=== PATIENT | female | born 1950 | race Caucasian/White ===

== ENCOUNTER 2017-06-05 05:55 | Emergency (ER) | payer BC ==
[2017-06-05 06:31] LABS: #Basophils 0.1 thou/uL (0.0-0.2); #Lymphocytes 0.6 thou/uL (1.20-3.40); #Monocytes 1.2 thou/uL (0.11-0.59); #Neutrophils 15.6 thou/uL (1.40-6.50); %Basophils 0.6 % (0.0-1.0); %Eosinophils 0.1 % (0.0-10.0); %Lymphocytes 3.3 % (21.0-51.0); %Monocytes 6.6 % (0.0-10.0); %Neutrophils 89.4 % (42.0-75.0); Hemoglobin 12.4 g/dL (12.0-16.0); Mean Corpuscular Hemoglobin 31.3 pg (27.0-31.0); Mean Corpuscular Volume 94.8 fl (81.0-99.0); Mean Platelet Volume 9.2 fL (7.4-10.4); Platelet Count 126 thou/uL (130-400); RBC Distribution Width 12.7 % (11.5-14.5); Red Blood Cell (RBC) Count 3.95 mill/uL (4.20-5.40); White Blood Cell (WBC) Count 17.4 thou/uL (4.8-10.8)
[2017-06-05 06:35] LABS: PTT 27.4 SEC (22.9-36.1)
[2017-06-05 06:44] LABS: ALT (SGPT) 17 U/L (8-55); AST (SGOT) 27 U/L (5-34); Albumin 4.1 g/dL (3.4-4.8); Alkaline Phosphatase 63 U/L (40-150); Anion Gap 16 mmol/L (10-20); BUN (Urea Nitrogen) 20 mg/dL (9.8-20.1); Bilirubin, Total 0.5 mg/dL (0.2-1.2); Calc. Creatinine Clearance 0 mL/min (70-130); Calcium 9.5 mg/dL (7.8-10.44); Carbon Dioxide 26 mmol/L (23-31); Chloride 98 mmol/L (98-107); Estimated GFR-MDRD 33; Globulin 3.3 g/dL (2.4-3.5); Glucose 99 mg/dL (80-115); Potassium 4.3 mmol/L (3.5-5.1); Protein, Total 7.4 g/dL (6.0-8.3); Sodium 136 mmol/L (136-145)
[2017-06-05 07:02] LABS: Bilirubin Negative (Negative); Blood, Urine Trace (Negative); Clarity Cloudy (Clear); Glucose, Urine (Dipstick) Negative (Negative); Leukocyte Large (Negative); Nitrite Negative (Negative); Protein, Urine (Dipstick) Negative (Neg-Trace); Specific Gravity, Urine 1.015 (1.005-1.030); Urobilinogen 0.2 mg/dL (0.2-1.0); pH, Urine 5.5 (5.0-9.0)
--- NOTE | 2017-06-05 07:05 | RAD ---
PORTABLE CHEST: Date: 06/05/17 Comparison is made with a 05/10/13 study done at [facility]. This portable film at 0616 hours shows a prominent left hilum compared to before. There is a general ly confluent area that measures about 4.7 x 2.4 cm here. I suspect that there is more here than just pulmonary artery and would suspect underlying adenopathy or mass. Elective CT to investigate this f urther, particularly in view of the patient's clinical history, would be in order. The lungs are oth erwise clear. There are no effusions. Heart size is normal. Calcification is seen in the aortic arch as usual. A right central venous catheter is in place with its tip in the vicinity of the distal horowitz perior vena cava. IMPRESSION: Left hilar prominence suspicious for underlying pathology. CT needed for further investigation. POS: HOME
[2017-06-05 07:11] LABS: Bacteria/HPF 2+ HPF (None Seen); RBC/HPF 0-3 HPF (0-3); Squamous Epithelial 0-3 HPF (0-3)
== END 2017-06-05 07:50 | disposition home or self-care (01) ==
LOC: BURERS 05:55
DX: N39.0 Urinary tract infection, site not specified (principal); I25.10 Atherosclerotic heart disease of native coronary artery without angina pectoris; I25.2 Old myocardial infarction; I10 Essential (primary) hypertension; J44.9 Chronic obstructive pulmonary disease, unspecified; Z79.82 Long term (current) use of aspirin; Z79.899 Other long term (current) drug therapy; Z79.891 Long term (current) use of opiate analgesic
CPT/HCPCS: 36415; 71010; 80053; 81003; 81015; 82553; 83880; 84484; 85025; 85610; 85730; 93005

== ENCOUNTER 2017-08-20 10:30 | Emergency (ER) | payer BC ==
[2017-08-20 10:57] LABS: Bilirubin Negative (Negative); Blood, Urine Negative (Negative); Clarity Slightly Cloudy (Clear); Glucose, Urine (Dipstick) Negative (Negative); Leukocyte Small (Negative); Nitrite Negative (Negative); Protein, Urine (Dipstick) Trace mg/dL (Neg-Trace); Specific Gravity, Urine 1.015 (1.005-1.030); Urobilinogen 0.2 mg/dL (0.2-1.0); pH, Urine 5.5 (5.0-9.0)
[2017-08-20 11:04] LABS: Bacteria/HPF Rare-Few HPF (None Seen); RBC/HPF None Seen HPF (0-3); Squamous Epithelial 0-3 HPF (0-3); Yeast-All Forms 1+ HPF (None Seen)
[2017-08-20] MEDS ORDERED: cefTRIAXone\\ROCEPHIN 1 GM VIAL ONE (11:49)
[2017-08-20 11:54] LABS: ALT (SGPT) 17 U/L (8-55); AST (SGOT) 19 U/L (5-34); Albumin 3.8 g/dL (3.4-4.8); Alkaline Phosphatase 82 U/L (40-150); Anion Gap 16 mmol/L (10-20); BUN (Urea Nitrogen) 24 mg/dL (9.8-20.1); Bilirubin, Total 0.3 mg/dL (0.2-1.2); Calc. Creatinine Clearance 0 mL/min (70-130); Calcium 9.4 mg/dL (7.8-10.44); Carbon Dioxide 26 mmol/L (23-31); Chloride 101 mmol/L (98-107); Estimated GFR-MDRD 33; Glucose 98 mg/dL (80-115); Potassium 5.2 mmol/L (3.5-5.1); Protein, Total 7.8 g/dL (6.0-8.3); Sodium 138 mmol/L (136-145)
[2017-08-20 11:56] LABS: CKMB 1.6 ng/mL (0-6.6); Troponin I Less than 0.010 ng/mL (< 0.028)
[2017-08-20 12:20] LABS: #Eosinphils 0.4 thou/uL (0.0-0.7); #Lymphocytes 1.6 thou/uL (1.20-3.40); #Monocytes 0.7 thou/uL (0.11-0.59); #Neutrophils 7.4 thou/uL (1.40-6.50); %Basophils 0.5 % (0.0-1.0); %Eosinophils 4.1 % (0.0-10.0); %Lymphocytes 15.8 % (21.0-51.0); %Monocytes 6.8 % (0.0-10.0); %Neutrophils 72.9 % (42.0-75.0); Eosinophils 3 % (0-10); Hemoglobin 9.5 g/dL (12.0-16.0); Lymphocytes 19 % (21-51); MDiff Complete? YES; Mean Corpuscular HGB CONC 31.3 g/dL (32.0-36.0); Mean Corpuscular Hemoglobin 27.6 pg (27.0-31.0); Mean Corpuscular Volume 88.3 fl (81.0-99.0); Mean Platelet Volume 9.8 fL (7.4-10.4); Monocytes 4 % (0-10); Neutrophil 74 % (42-75); PLT Morphology Comment Appears Adequate; Platelet Count 193 thou/uL (130-400); RBC Distribution Width 14.9 % (11.5-14.5); RBC Morphology Normal; Red Blood Cell (RBC) Count 3.43 mill/uL (4.20-5.40); White Blood Cell (WBC) Count 10.2 thou/uL (4.8-10.8)
--- NOTE | 2017-08-20 19:59 | RAD ---
PORTABLE CHEST: Date: 08-20-17 An AP portable film at 1059 is compared with a 06-05-17 study. FINDINGS: The patient is turned to the left significantly which particularly obscures the left lung and paratra cheal region on the left. The heart may be minimally enlarged but not significantly and if better pos itioned, it might even be normal. A Mediport catheter is present on the right as usual. Calcification is seen in the aortic arch. No definite infiltrates are seen. Comment was made in May regarding the size of the patient's left hilum and a CT was recommended at that time, but I do not know if it w as done or not. There is a left apical density, however, with the patient oblique as much as she is, I cannot tell if this is overlapping vessels reflected on top of the apex or if there is pathology here. IMPRESSION: 1. Limited study due to the patient being turned substantially. Left apical opacity that may just be reflected structures due to rotation, however, in view of the finding on the May film, I am not a t all comfortable leaving this as is. 2. At the very least, I would recommend a better positioned upright PA chest film to re-investigate t he left apex and also see the left hilum better. If either of these appears abnormal upon doing so, t hen a CT of the thorax to remove all doubt and to look for pathology on the left side would be recomm ended. Code T POS: HOME
== END 2017-08-20 12:51 | disposition home or self-care (01) ==
LOC: BURERS 10:30
DX: J06.9 Acute upper respiratory infection, unspecified (principal); B37.9 Candidiasis, unspecified; D64.9 Anemia, unspecified; I95.9 Hypotension, unspecified; E87.6 Hypokalemia; J44.9 Chronic obstructive pulmonary disease, unspecified; I25.10 Atherosclerotic heart disease of native coronary artery without angina pectoris; I25.2 Old myocardial infarction; Z79.82 Long term (current) use of aspirin; Z79.891 Long term (current) use of opiate analgesic; Z79.899 Other long term (current) drug therapy
CPT/HCPCS: 36415; 71045; 80053; 81003; 81015; 82553; 83605; 84484; 85025; 87040; 94760; 96365; J0696

== ENCOUNTER 2017-08-27 19:27 | Emergency (ER) | payer BC ==
--- NOTE | 2017-08-28 02:18 | CT ---
PRELIMINARY REPORT/[facility]/EMERGENCY AFTER HOURS PROCEDURE: EXAM: CT Head Without Intravenous Contrast CLINICAL HISTORY: 67 years old, female; Injury or trauma; Fall; Injury details: Fall, no loc TECHNIQUE: Axial computed tomography images of the head/brain without intravenous contrast. COMPARISON: No relevant prior studies available. FINDINGS: Brain: Scattered areas of hypoattenuation, likely chronic small vessel ischemic change, demyelination , or gliosis. Ventricles: Normal. Bones/joints: Normal. No acute fracture. Soft tissues: Normal. Vasculature: Atherosclerotic vascular calcifications. Sinuses: Minimal ethmoid sinus disease. Mastoid air cells: Normal as visualized. No mastoid effusion. IMPRESSION: 1. No acute findings. 2. Non-acute findings are described above. Thank you for allowing us to participate in the care of your patient. Dictated and Authenticated by: Don Santiago MD 08/27/2017 8:35 PM Central Time ([place] & [place]) FINAL REPORT CT OF THE BRAIN WITHOUT CONTRAST 08/27/[address] was performed for evaluation following trauma. No intracranial bleeding or extra-axi al hematoma was seen. profound deep white matter lucency is present consistent with chronic microvasc ular ischemia. There were no findings strongly suggestive of acute stroke, mass, or edema. The calvar ium appears intact with no sign of fracture. The sphenoid sinus and mastoid air cells are clear. The ventricles are normal in size given the degree of atrophy present. IMPRESSION: Atrophy and chronic ischemic changes but no acute traumatic findings. Report in agreement with preliminary reading by Sanchez. POS: HOME
--- NOTE | 2017-08-28 02:19 | CT ---
PRELIMINARY REPORT/[facility]/EMERGENCY AFTER HOURS PROCEDURE: EXAM: CT Cervical Spine Without Intravenous Contrast CLINICAL HISTORY: 67 years old, female; Injury or trauma; Fall; Initial encounter; Blunt trauma; Patient HX: Fall, no l oc TECHNIQUE: Axial computed tomography images of the cervical spine without intravenous contrast. COMPARISON: No relevant prior studies available. FINDINGS: Vertebrae: Degenerative changes of the atlantoaxial articulation. No acute fracture. Discs/spinal canal/neural foramina: Multilevel degenerative disc disease. Bilateral C5-6 and bilatera l C6-7 neural foraminal narrowing. Centrilobular emphysema within the visualized right lung apex. Soft tissues: Normal. Vasculature: Atherosclerotic vascular calcifications. Mastoid air cells: Small amount of fluid within the inferior left mastoid air cells, which can be see n with mastoiditis. Lung apices: Mass or consolidation within the visualized left lung apex. IMPRESSION: 1. No acute cervical spine abnormality. 2. Mass or consolidation within the visualized left lung apex. Recommend further evaluation. 3. Incidental/non-acute findings are described above. Thank you for allowing us to participate in the care of your patient. Dictated and Authenticated by: Don Santiago MD 08/27/2017 8:37 PM Central Time ([place] & [place]) FINAL REPORT CT OF THE CERVICAL SPINE WITHOUT CONTRAST 08/27/[address] of the cervical spine was performed following trauma. Axial slices were acquired, followed by coronal and sagittal reconstructions. No fracture, dislocation, or acute bony change was seen at any cervical level. Disc space narrowing i s present to a small extent at C4-C5 and more so at C5-C6. Findings by level follow: C1-C2: No acute findings. C2-C3: No acute findings. C3-C4: There may be some minimal concentric bulging of the disc but no sign of encroachment or imping ement. No stenosis. C4-C5: There is moderate right foraminal narrowing and mild left foraminal narrowing due to osteophyt es. AP diameter of the canal is slightly reduced but still sufficient. C5-C6: Severe bilateral foraminal narrowing due to uncovertebral osteophytes. AP diameter of the sandra l at this level is approximately 10 to 11 mm. C6-C7: Moderate bilateral foraminal narrowing. Adequate central canal. C7-T1: No acute findings. T1-T2: No acute findings. There is a soft tissue density in the apex of the left lung. An May chest x-ray showed no mass th ere but there was left hilar prominence suspicious for underlying pathology and a CT was recommended at that time. I do not know if one has been done in the interim. Given that finding, the possibility of a mass should be raised. Additionally, there may be a lucency in the right lobe of the thyroid gla nd. This is less certain and could be investigated electively with an ultrasound. IMPRESSION: 1. Degenerative changes of the cervical spine but no acute traumatic changes. 2. Soft tissue density in the apex of the left lung. A mass is strongly suspected given the appe arance of the 06/05/17 chest x-ray. An elective CT of the chest and/or PA chest film would be recomme nded. 3. Equivocal lucency in the right lobe of the thyroid gland. See above. Report in agreement with preliminary reading by Sanchez. POS: HOME
--- NOTE | 2017-08-28 02:21 | CT ---
PRELIMINARY REPORT/[facility]/EMERGENCY AFTER HOURS PROCEDURE: EXAM: CT Pelvis Without Intravenous Contrast CLINICAL HISTORY: 67 years old, female; Injury or trauma; Fall; Initial encounter; Blunt trauma (contusions or hematoma s); Left; Hip; Patient HX: Fall, no loc TECHNIQUE: Axial computed tomography images of the pelvis without intravenous contrast. COMPARISON: No relevant prior studies available. FINDINGS: Bones/joints: Partially visualized surgical changes within the right proximal femur. No acute fractur e. No dislocation. Soft tissues: Normal. Vasculature: Atherosclerotic calcification of the visualized distal abdominal aorta and iliac arterie s. Stomach and bowel: Left lower quadrant ostomy present. No obstruction. No mucosal thickening. Appendix: The appendix is normal. Bladder: Urinary bladder decompressed by Dawson catheter. No stones. IMPRESSION: 1. No acute findings. 2. Non-acute findings are described above. Thank you for allowing us to participate in the care of your patient. Dictated and Authenticated by: Don Santiago MD 08/27/2017 8:40 PM Central Time ([place] & [place]) FINAL REPORT CT OF THE PELVIS WITHOUT CONTRAST 08/27/[address] of the pelvis was done following trauma. Axial slices were acquired. Then coronal and sagit holden reconstructions were done. No acute fracture was appreciated. Very subtle fractures might be missed due to osteopenia. Both hips appear intact and the hip joints are symmetrical. There is no widening or off-set of the symphysis a nd the SI joints are symmetrical. The sacrum appeared intact, as did the pubic rings. There probably is some bone infarcts in the proximal right femur. Incidental findings include a left lower quadrant colostomy and arteriosclerotic change in a nondilat ed aorta and iliac arteries. IMPRESSION: No acute bony findings. Report in agreement with preliminary reading by Sanchez. POS: HOME
== END 2017-08-27 22:00 ==
LOC: BURERS 19:27
DX: S09.90XA Unspecified injury of head, initial encounter (principal); I25.2 Old myocardial infarction; I10 Essential (primary) hypertension; J44.9 Chronic obstructive pulmonary disease, unspecified; I95.9 Hypotension, unspecified; E87.6 Hypokalemia; Z79.82 Long term (current) use of aspirin; Z79.899 Other long term (current) drug therapy; W05.0XXA Fall from non-moving wheelchair, initial encounter
CPT/HCPCS: 70450; 72125; 72192

== ENCOUNTER 2017-11-11 16:27 | Emergency (ER) | payer MEDICARE ==
[2017-11-11] MEDS ORDERED: Ketorolac Tromethamine 30 MG/ML VIAL ONE (18:23)
--- NOTE | 2017-11-11 20:30 | RAD ---
LEFT KNEE FOUR VIEWS: 11/11/17 No fracture was indicated. No fracture, dislocation, or joint effusion was seen. The joint space is n ormal in width. IMPRESSION: No acute findings. POS: HOME
--- NOTE | 2017-11-11 21:16 | RAD ---
PORTABLE CHEST: 11/11/17 An AP portable film at 1627 was compared with a 08/20/17 study. The heart is normal in size. A Medipor t catheter remains in place as before. There is scarring and an opacity involving the left upper lobe from known pathology in this location. No new infiltrate or effusion was seen. There are no congesti ve changes. IMPRESSION: Chronic changes but no acute findings. POS: HOME
== END 2017-11-11 19:45 | disposition home or self-care (01) ==
LOC: BURERS 16:27
DX: S00.03XA Contusion of scalp, initial encounter (principal); S20.221A Contusion of right back wall of thorax, initial encounter; I10 Essential (primary) hypertension; I25.10 Atherosclerotic heart disease of native coronary artery without angina pectoris; I25.2 Old myocardial infarction; J43.9 Emphysema, unspecified; Z79.82 Long term (current) use of aspirin; Z79.899 Other long term (current) drug therapy; W05.0XXA Fall from non-moving wheelchair, initial encounter
CPT/HCPCS: 71045; 96361; 96374; J1885

== ENCOUNTER 2019-09-11 22:50 | Emergency (ER) | payer MEDICARE, MEDICAID ==
--- NOTE | 2019-09-12 08:55 | RAD ---
AP PELVIS ONE VIEW: 09/11/2019 2259 HOURS COMPARISON: CT pelvis from 08/27/2017. FINDINGS: No major pelvic fracture is apparent. The hip joints are symmetrical and the symphysis shows no widen ing or offset. The SI joints are not seen well but seem reasonably symmetrical. A sclerotic area in t he proximal right femoral shaft was present previously and has not changed over time. IMPRESSION: No acute findings. POS: HOME
--- NOTE | 2019-09-12 08:57 | RAD ---
RIGHT HIP TWO VIEWS: 09/11/2019 COMPARISON: CT pelvis from 2018. FINDINGS: No fracture, dislocation or joint space narrowing is seen. A mixed lucent and sclerotic area is prese nt in the proximal femoral shaft, extending to the trochanteric level. It is obviously longstanding a nd was present previously and has not changed. Thus, I doubt its significance. IMPRESSION: No acute findings. POS: HOME
== END 2019-09-11 23:46 ==
LOC: BURERS 22:50
DX: S70.01XA Contusion of right hip, initial encounter (principal); I25.10 Atherosclerotic heart disease of native coronary artery without angina pectoris; I25.2 Old myocardial infarction; I10 Essential (primary) hypertension; J43.9 Emphysema, unspecified; Z79.82 Long term (current) use of aspirin; Z79.899 Other long term (current) drug therapy; W17.89XA Other fall from one level to another, initial encounter
CPT/HCPCS: 72170

== ENCOUNTER 2019-12-21 19:39 | Emergency (ER) | payer MEDICARE, OTHER ==
--- NOTE | 2019-12-21 20:32 | RAD ---
LEFT HIP TWO VIEWS: 12/21/19 No fracture was seen. There is no dislocation or joint space narrowing. The adjacent pubic ring appea rs intact. No bony destructive lesions were noted. IMPRESSION: No acute finding. POS: HOME
--- NOTE | 2019-12-21 20:55 | CT ---
CT CERVICAL SPINE 12/21/[address] of the cervical spine was done for evaluation following trauma. No fracture, dislocation, or acute bony change was seen at any cervical level. There were no areas o f bony destruction. The C1 to dens distance is normal and the soft tissues are normal in thickness. M ild disc space narrowing is seen at C2-C3, as well as C4-C5 and C5-C6. Findings by level follow: C1-C2: No acute findings. C2-C3: No acute findings. C3-C4: No acute findings. C4-C5: Bilateral foraminal narrowing of moderate degree on each side. C5-C6: Severe bilateral foraminal narrowing due to osteophytes, worse on the right. C6-C7: Moderate to severe bilateral foraminal narrowing. C7-T1: No acute findings. T1-T2: No acute findings. A mass is seen in the apex of the left lung which is an unknown entity in this patient. IMPRESSION: Diffuse degenerative changes but no acute traumatic findings. Preliminary report discussed with Dr. Deleon at 2015 on 12/21/19. Code CR
--- NOTE | 2019-12-21 21:07 | CT ---
CT OF THE BRAIN WITHOUT CONTRAST: 12/21/19 A noncontrast study was compared with the prior exam of 08/27/17. The ventricles are minimally dilated, commensurate with the degree of atrophy present. There is profo und deep white matter lucency suggestive of chronic microvascular ischemic change. There were no find ings of an acute stroke, though a small one would be missed against this background. No gross masses were identified. No intracranial bleeding or extra-axial hematoma was seen. The skull appears intact. There were no fracture evident. The visible paranasal sinuses and mastoid a ir cells are clear. A small line in the lower lateral part of the left orbit is thought to be sutural in nature. This is remote from the much higher skin contusion and there is no fluid in the adjacent sinus. IMPRESSION: Chronic changes but no acute intracranial findings. Preliminary report discussed with Dr. Deleon at 2015 on 12/21/19. POS: HOME
== END 2019-12-21 22:10 ==
LOC: BURERS 19:39
DX: S00.83XA Contusion of other part of head, initial encounter (principal); S70.02XA Contusion of left hip, initial encounter; I25.10 Atherosclerotic heart disease of native coronary artery without angina pectoris; I25.2 Old myocardial infarction; Z79.899 Other long term (current) drug therapy; Z79.82 Long term (current) use of aspirin; W18.30XA Fall on same level, unspecified, initial encounter
CPT/HCPCS: 70450; 72125

== ENCOUNTER 2021-12-10 10:16 | Emergency (ER) | payer MEDICARE, MEDICAID ==
[2021-12-10 11:19] LABS: ALT (SGPT) 30 U/L (8-55); AST (SGOT) 38 U/L (5-34); Albumin 3.4 g/dL (3.4-4.8); Alkaline Phosphatase 84 U/L (40-110); Anion Gap 20 mmol/L (10-20); BUN (Urea Nitrogen) 27 mg/dL (9.8-20.1); Bilirubin, Total 0.4 mg/dL (0.2-1.2); Calc. Creatinine Clearance 0 mL/min (70-130); Calcium 9.5 mg/dL (7.8-10.44); Carbon Dioxide 28 mmol/L (23-31); Chloride 101 mmol/L (98-107); Globulin 4.3 g/dL (2.4-3.5); Glucose 112 mg/dL (80-115); Potassium 4.5 mmol/L (3.5-5.1); Protein, Total 7.7 g/dL (5.8-8.1); Sodium 144 mmol/L (136-145)
[2021-12-10 11:21] LABS: #Basophils 0.1 thou/uL (0.0-0.2); #Eosinphils 0.2 thou/uL (0.0-0.7); #Lymphocytes 0.8 thou/uL (1.20-3.40); #Neutrophils 10.8 thou/uL (1.40-6.50); %Basophils 0.7 % (0.0-1.0); %Eosinophils 1.9 % (0.0-10.0); %Lymphocytes 6.5 % (21.0-51.0); %Monocytes 7.4 % (0.0-10.0); %Neutrophils 83.5 % (42.0-75.0); Mean Corpuscular HGB CONC 31.2 g/dL (32.0-36.0); Mean Corpuscular Hemoglobin 26.5 pg (27.0-31.0); Mean Corpuscular Volume 84.8 fL (78.0-98.0); Mean Platelet Volume 8.1 fL (7.4-10.4); Platelet Count 334 thou/uL (130-400); RBC Distribution Width 14.4 % (11.5-14.5); Red Blood Cell (RBC) Count 4.17 mill/uL (4.20-5.40)
[2021-12-10 13:49] LABS: Bilirubin Negative (Negative); Blood, Urine Trace (Negative); Clarity Clear (Clear); Glucose, Urine (Dipstick) Negative (Negative); Ketone, Urine Negative (Negative); Leukocyte Negative (Negative); Nitrite Negative (Negative); Protein, Urine (Dipstick) Negative (Neg-Trace); Urobilinogen 0.2 mg/dL (Less than 2); pH, Urine 5.5 (5.0-9.0)
[2021-12-10 14:00] LABS: Bacteria/HPF 1+ HPF (None Seen); RBC/HPF 0-3 HPF (0-3); Squamous Epithelial 0-3 HPF (0-3); WBC/HPF 0-3 HPF (0-3)
== END 2021-12-10 15:54 ==
LOC: BURERS 10:16
DX: R41.82 Altered mental status, unspecified (principal); R06.00 Dyspnea, unspecified; I50.9 Heart failure, unspecified; I25.2 Old myocardial infarction; I25.10 Atherosclerotic heart disease of native coronary artery without angina pectoris; J43.9 Emphysema, unspecified
CPT/HCPCS: 36415; 71045; 80053; 81003; 81015; 85025; 87086